=== PATIENT | female | born 1960 | race Caucasian/White ===

== ENCOUNTER 2019-12-17 07:18 | Outpatient (CLI) | payer OTHER, SELFPAY ==
--- NOTE | 2019-12-17 07:21 | MM_ITS ---
WS: [id number] Bilateral screening digital mammogram, 12/17/2019 Clinical Data: SCREENING Comparison: 08/29/2018, 05/16/2017, 05/02/2016, 04/08/2015, 03/31/2014, 04/01/2013, 03/16/2011, 01/20/20 10, 12/28/2008, 12/19/2007. Findings: The breast parenchymal pattern shows fibroglandular tissue No spiculated masses or clustered calcific ations are seen. There are no secondary signs of carcinoma. MM/[id number] Impression: 1. Negative bilateral mammogram unchanged. 2. Recommend annual screening mammograms. BIRADS: 1-Negative FOLLOW UP: 1 Year Follow-up The CAD electric organ checker was used.
== END 2019-12-17 07:19 | disposition home or self-care (01) ==
LOC: RADSHAW 07:20
PROVIDERS: PCP Family Medicine; Visit Provider Family Medicine
DX: Z12.31 Encounter for screening mammogram for malignant neoplasm of breast (principal)
CPT/HCPCS: 77067

== ENCOUNTER 2020-12-19 07:12 | Outpatient (CLI) | payer OTHER, SELFPAY ==
--- NOTE | 2020-12-19 07:20 | MM_ITS ---
WS: [id number] BILATERAL DIGITAL SCREENING MAMMOGRAPHY WITH CAD CLINICAL INFORMATION: SCREENING HISTORY: Screening mammogram. No current complaints. COMPARISON: December 17, 2019 TECHNIQUE: Bilateral CC and MLO views. FINDINGS: Scattered fibroglandular densities bilaterally. No suspicious focal mass, asymmetry, calcifications, or architectural distortion. No evidence of malignancy. A few punctate calcifications. MM/[id number] IMPRESSION: BI-RADS: 2-Benign FOLLOW UP: 1 Year Follow-up Recommend return to annual screening mammography.
== END 2020-12-19 07:13 | disposition home or self-care (01) ==
LOC: RADSHAW 07:14
PROVIDERS: PCP Family Medicine; Visit Provider Family Medicine
DX: Z12.31 Encounter for screening mammogram for malignant neoplasm of breast (principal)
CPT/HCPCS: 77067

== ENCOUNTER 2021-10-20 06:10 | Day surgery (SDC) | payer OTHER, SELFPAY ==
[2021-10-18 14:54] VITALS: BMI 37.2
[2021-10-20 06:28] VITALS: BP 164/126; PULSE 67; RESP 18; TEMP 36.6; O2SAT 97
[2021-10-20] MEDS: sodium chloride 0.9% 1,000 ML 30 ML IV (06:34)
--- NOTE | 2021-10-20 06:50 | ANES.PREANE2 ---
Pre-Anesthetic Assessment Height/Weight: Height 1.6 m Weight 95.254 kg Temp Pulse Resp BP Pulse Ox 98 F 67 18 164/126 97 10/20/21 06:28 10/20/21 06:28 10/20/21 06:28 10/20/21 06:28 10/20/21 06:28 Preop Diagnosis: diagnostic Operation Date: 10/20/21 07:30 Proposed Procedures p Colonoscopy 59225/z12.11(Not Applicable) - Adalid Degroot MD Was Beta Francisco J taken within 24 hours: N/A Was Clonidine taken within 24 hours: N/A Last intake: Intake Last Liquid Date 10/19/21 Last Liquid Time 22:00 Last Solid Date 10/18/21 Last Solid Time 23:00 Social No alcohol and No tobacco Exam alert and oriented x 3 Airway Submandibular: within normal limits Cervical ROM: within normal limits Mallampati: Class III Dentition: false History/ROS No significant history except as noted Pulmonary None reported CV/HEM None reported None reported Hepatic None reported GI None reported Metabolic Thyroid Disease [facility] None reported Neuropsych None reported Anesthetic Plan ASA status: 2 Anesthesia: Anesthesia Evaluation and MAC Risk of > 500 ml blood loss (7ml/kg in children): No Medications/Allergies Home Medications Medication Instructions Recorded Confirmed Last Taken Type acetazolamide 500 mg 500 mg PO BID 11/09/20 10/18/21 10/19/21 History capsule,extended release levothyroxine 25 mcg capsule 25 mcg PO DAILY 11/09/20 10/18/21 10/19/21 History tetracycline 500 mg capsule 500 mg PO Q12H 90 Days #180 cap 11/24/20 10/18/21 10/19/21 Rx Allergies Allergy/AdvReac Type Severity Reaction Status Date / Time codeine Allergy unsure Verified 10/18/21 14:59 Current Medications Generic Name Dose Route Start Last Admin Trade Name Freq PRN Reason Stop Dose Admin Sodium Chloride 1,000 mls @ 30 mls/hr 10/20/21 06:15 10/20/21 06:34 Sodium Chloride 0.9% IV 10/21/21 06:14 30 mls/hr .Q24H KRISTEL Administration PFSH Anesthesia Surgical History (Updated 11/09/20 @ 15:35 by ANDI Escobedo) Hx of tonsillectomy Family History (Updated 11/09/20 @ 15:38 by ANDI Escobedo) Father Cancer pancreatic cancer Mother No problems noted. Sister Cancer colon Social History (Updated 11/09/20 @ 15:29 by Pebbles Farrell LPN) Smoking and tobacco status: never smoked Data Anesthesia Cardiac Studies: Holter Monitor 07/12/20
--- NOTE | 2021-10-20 06:59 | P.HP_ITS ---
Same Day Surgery H&P Indication for Procedure/HPI DATE OF PROCEDURE: October 20, 2021 CHIEF COMPLAINT/INDICATIONFOR SURGICAL PROCEDURE: colonoscopy PREOP DIAGNOSIS: diagnostic PLANNED PROCEDURE: Operation Date: 10/20/21 07:30 Proposed Procedures p Colonoscopy 44709/z12.11(Not Applicable) - Adalid Degroot MD Medications/Allergies* Home Medications Medication Instructions Recorded Confirmed Type acetazolamide 500 mg 500 mg PO BID 11/09/20 10/18/21 History capsule,extended release levothyroxine 25 mcg capsule 25 mcg PO DAILY 11/09/20 10/18/21 History Allergies/Adverse Reactions Allergy/AdvReac Type Severity Reaction Status Date / Time codeine Allergy unsure Verified 10/18/21 14:59 Current Medications: Generic Name Dose Route Start Last Admin Trade Name Freq PRN Reason Stop Dose Admin Sodium Chloride 1,000 mls @ 30 mls/hr 10/20/21 06:15 10/20/21 06:34 Sodium Chloride 0.9% IV 10/21/21 06:14 30 mls/hr .Q24H KRISTEL Administration Pertinent History/Comorbid Conditions* Surgical History (Updated 11/09/20 @ 15:35 by ANDI Escobedo) Hx of tonsillectomy Family History (Updated 11/09/20 @ 15:38 by ANDI Escobedo) Father Cancer Father pancreatic cancer Sister colon Social History Smoking and tobacco status: never smoked Pertinent Exam Findings alert, oriented x 3 and regular rate & rhythm Recommendations Surgery/Procedure today Coding Level of Care Code Acute Mirror Inspector for Tyler Dyer
[2021-10-20 08:08] VITALS: BP 169/107; PULSE 70; RESP 16; TEMP 36.1; O2SAT 96
--- NOTE | 2021-10-20 08:11 | ANE.PACU2 ---
Inpatient post-anesthesia follow up: Airway intact: Yes Vital signs: Temperature 97 F Pulse Rate 70 Respiratory Rate 16 Blood Pressure 169/107 Pulse Oximetry 96 Oxygen Delivery Me thod Nasal Cannula Oxygen Flow Rate 2 Fraction of Inspir ed Oxygen Hydration adequate: Yes Nausea and vomiting: No Pain level: 1 Mental status: Baseline
[2021-10-20 08:25] VITALS: BP 148/92; PULSE 53; RESP 18; O2SAT 100
--- NOTE | 2021-10-20 08:51 | PC.NURSE ---
pt passing flatus. states feels like i need to pass more. pt up to BR and attempting to pass gas. offered flatus tube but pt refuses at this time.
== END 2021-10-20 08:55 | disposition home or self-care (01) ==
PROVIDERS: PCP Family Medicine; Visit Provider Surgery
PROC: 0DJD8ZZ Inspection of Lower Intestinal Tract, Via Natural or Artificial Opening Endoscopic (ICD-10-PCS; CPT 45378; principal; 2021-10-20 07:30)
DX: Z12.11 Encounter for screening for malignant neoplasm of colon (principal); D12.3 Benign neoplasm of transverse colon
CPT/HCPCS: 45385; 88305; J2704; J7030

== ENCOUNTER → 2021-12-10 18:53 | Outpatient (BNVA) | payer OTHER, SELFPAY | PROVIDERS: PCP Family Medicine; Visit Provider Registered Nurse Neonatal Intensive Care | DX: S99.922A Unspecified injury of left foot, initial encounter (principal); W19.XXXA Unspecified fall, initial encounter | CPT/HCPCS: 73630 ==

== ENCOUNTER 2022-01-12 07:24 | Outpatient (CLI) | payer OTHER, SELFPAY ==
--- NOTE | 2022-01-12 07:28 | MM_ITS ---
WS: [id number] BILATERAL SCREENING DIGITAL TOMOSYNTHESIS MAMMOGRAM WITH CAD HISTORY: SCREENING COMPARISON: 12/19/2020 and 12/17/2019 Bilateral CC and MLO views with tomosynthesis and synthetic mammography submitted. Computer aided det ection analyzed. Breast composition: There are scattered areas of fibroglandular density. No suspicious masses, microc alcifications or architectural distortion. MM/[place] [id number] IMPRESSION: BI-RADS: 1-Negative FOLLOW UP: 1 Year Follow-up
== END 2022-01-12 07:25 | disposition home or self-care (01) ==
LOC: RAD 07:24
PROVIDERS: PCP Family Medicine; Visit Provider Family Medicine
DX: Z12.31 Encounter for screening mammogram for malignant neoplasm of breast (principal)
CPT/HCPCS: 77063; 77067

== ENCOUNTER 2023-01-25 07:25 | Outpatient (CLI) | payer OTHER, SELFPAY ==
--- NOTE | 2023-01-25 07:33 | MM_ITS ---
WS: [id number] BILATERAL SCREENING DIGITAL TOMOSYNTHESIS MAMMOGRAM WITH CAD HISTORY: SCREENING COMPARISON: 01/12/2022, 12/19/2020 Bilateral CC and MLO views with tomosynthesis and synthetic mammography submitted. Computer aided det ection analyzed. Breast composition: There are scattered areas of fibroglandular density. No suspicious masses, microc alcifications or architectural distortion. IMPRESSION: MM/[id number] BI-RADS: 1-Negative FOLLOW UP: 1 Year Follow-up
== END 2023-01-25 07:26 | disposition home or self-care (01) ==
PROVIDERS: PCP Family Medicine; Visit Provider Family Medicine
DX: Z12.31 Encounter for screening mammogram for malignant neoplasm of breast (principal)
CPT/HCPCS: 77063; 77067

== ENCOUNTER → 2023-05-22 11:02 | Outpatient (BNVA) | payer OTHER, SELFPAY | PROVIDERS: PCP Family Medicine; Visit Provider Emergency Medicine | DX: J06.9 Acute upper respiratory infection, unspecified (principal); J01.90 Acute sinusitis, unspecified | CPT/HCPCS: 87400; 87426 ==

== ENCOUNTER 2024-02-14 07:23 | Outpatient (CLI) | payer OTHER, SELFPAY ==
--- NOTE | 2024-02-14 07:28 | MM_ITS ---
WS: [id number] SCREENING DIGITAL TOMOSYNTHESIS MAMMOGRAM WITH CAD HISTORY: SCREEN COMPARISON: 01/25/2023, 01/12/2022, 12/19/2020 Bilateral CC and MLO with tomosynthesis views submitted. Synthetic mammography reviewed. Computer aid ed detection analyzed. Breast composition: There are scattered areas of fibroglandular density. No suspicious masses, microc alcifications or architectural distortion. MM/[place] [id number] IMPRESSION: BI-RADS: 2 - Benign. FOLLOW UP: 1 Year Follow-up
== END 2024-02-14 07:24 | disposition home or self-care (01) ==
LOC: RAD 07:23
PROVIDERS: PCP Family Medicine; Visit Provider Family Medicine
DX: Z12.31 Encounter for screening mammogram for malignant neoplasm of breast (principal)
CPT/HCPCS: 77063; 77067

== ENCOUNTER → 2024-05-21 18:31 | Outpatient (BNVA) | payer OTHER, SELFPAY | PROVIDERS: PCP Family Medicine; Visit Provider Family Medicine | DX: S69.91XA Unspecified injury of right wrist, hand and finger(s), initial encounter (principal); W19.XXXA Unspecified fall, initial encounter | CPT/HCPCS: 73130 ==

== ENCOUNTER → 2024-08-14 08:27 | Outpatient (BNVA) | payer OTHER, SELFPAY | PROVIDERS: PCP Family Medicine; Visit Provider Family Medicine | DX: Z13.6 Encounter for screening for cardiovascular disorders (principal); E03.9 Hypothyroidism, unspecified | CPT/HCPCS: 80053; 80061; 84443; 85025 ==

== ENCOUNTER 2025-02-17 07:58 | Outpatient (CLI) | payer OTHER, SELFPAY ==
--- NOTE | 2025-02-17 08:01 | MM_ITS ---
WS: [id number] BILATERAL SCREENING DIGITAL TOMOSYNTHESIS MAMMOGRAM WITH CAD HISTORY: SCREENING COMPARISON: 02/14/2024, 01/25/2023 Bilateral CC and MLO views with tomosynthesis and synthetic mammography submitted. Computer aided detection analyzed. Breast composition: There are scattered areas of fibroglandular density. No suspicious masses, microcalcifications or architectural distortion. MM/MM scr [place] tomosynthesis [id number] IMPRESSION: BI-RADS: 2 - Benign. FOLLOW UP: 1 Year Follow-up
== END 2025-02-17 07:59 | disposition home or self-care (01) ==
LOC: RAD 07:59
PROVIDERS: PCP Family Medicine; Visit Provider Family Medicine
DX: Z12.31 Encounter for screening mammogram for malignant neoplasm of breast (principal); R92.323 Mammographic fibroglandular density, bilateral breasts
CPT/HCPCS: 77063; 77067

== ENCOUNTER → 2025-05-11 08:28 | Outpatient (BNVA) | payer OTHER, SELFPAY | PROVIDERS: PCP Family Medicine; Visit Provider Family Medicine | DX: R00.2 Palpitations (principal); E03.9 Hypothyroidism, unspecified | CPT/HCPCS: 80053; 83735; 84439; 84443 ==